=== PATIENT | female | born 1970 | race Caucasian/White ===

== ENCOUNTER 2017-05-22 21:59 | Emergency (ER) | payer BC ==
[~2017-05-22] VITALS: Ht 162.6 cm; Wt 70.5 kg
[2017-05-22 22:05] VITALS: Ht 162.6 cm; Wt 70.5 kg
[2017-05-22] MEDS ORDERED: ONDANSETRON (ODT) 4 MG TAB ODT STA (22:41)
[2017-05-22] MEDS ORDERED: HYDROCODONE/APAP (5/325) TAB PO ONE (23:00)
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
[2017-05-23] MEDS ORDERED: HYDR-906 PO (00:16)
[2017-05-23] MEDS ORDERED: IBUP-1542 PO (00:16)
[2017-05-23] MEDS ORDERED: CARI350T PO (00:16)
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
[2017-05-23] MEDS ORDERED: HYDROCODONE/APAP (5/325) TAB PO ONE (00:30)
== END 2017-05-23 00:31 | disposition home or self-care (01) ==
LOC: FTE 21:59
DX: S16.1XXA Strain of muscle, fascia and tendon at neck level, initial encounter (principal); S09.90XA Unspecified injury of head, initial encounter; M54.9 Dorsalgia, unspecified; R10.30 Lower abdominal pain, unspecified; V48.5XXA Car driver injured in noncollision transport accident in traffic accident, initial encounter
CPT/HCPCS: 70450; 72072; 72100; 72125

== ENCOUNTER 2017-08-17 23:28 | Emergency (ER) | payer BC, OTHER ==
[~2017-08-17] VITALS: Ht 160 cm; Wt 72.5 kg
[~2017-08-17 23:28] MED LIST: CARI350T PO; HYDR-906 PO; IBUP-1542 PO
[2017-08-17 23:31] VITALS: Ht 160 cm; Wt 72.5 kg
[2017-08-18] MEDS ORDERED: HYDROCODONE/APAP (5/325) TAB PO ONE (01:30)
--- NOTE | 2017-08-18 02:29 | RADRPT ---
PROCEDURE: XR Chest. CLINICAL INDICATION: Chest pain. TECHNIQUE: Single frontal chest x-ray. COMPARISON: 11/16/2008 FINDINGS: The cardiomediastinal silhouette is unremarkable. There is no congestive heart failure.. No focal i nfiltrate is seen. There is no pleural effusion. There is no pneumothorax. The osseous structures are unremarkable. IMPRESSION: 1. No active disease. RPTAT: HMVK .Eron Sánchez MD, MD Date Time Electronically viewed and signed by .Eron Sánchez MD, on 08/18/2017 02:29 .K/
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
--- NOTE | 2017-08-18 02:36 | RADRPT ---
PROCEDURE: CT Thoracic Spine without contrast. CLINICAL INDICATION: Back pain TECHNIQUE: Noncontrast CT of the thoracic spine was performed with axial images. Coronal and sagitta l images were also performed. The administered radiation dose was CTDI vol = 15.7 mGy, DLP = 636 m Gy-cm. COMPARISON: There are no similar studies submitted for comparison. FINDINGS: Vertebral body stature and alignment are maintained. No acute fracture or subluxation is identified. The paravertebral and paraspinous soft tissues are unremarkable. IMPRESSION: No acute fracture or subluxation. RPTAT: HIKT .Uzair Ca MD, MD Date Time Electronically viewed and signed by .Uzair Ca MD, MD on 08/18/2017 02:35 .T/
[2017-08-18 02:49] LABS: BASOPHILS % 0.2 % (0.0-2.0); HEMATOCRIT 37.9 % (37.0-47.0); HEMOGLOBIN 12.4 g/dl (12.0-16.0); LYMPHOCYTES # 1.2 10^3/ul (0.8-2.9); LYMPHOCYTES % 10.8 % (15.0-51.0); MEAN CORPUSCULAR HEMOGLOBIN 29.8 pg (29.0-33.0); MEAN CORPUSCULAR HGB CONC 32.7 g/dl (32.0-37.0); MEAN CORPUSCULAR VOLUME 91.1 fl (82.0-101.0); MONOCYTE # 0.5 10^3/ul (0.3-0.9); MONOCYTES % 4.2 % (0.0-11.0); NEUTROPHIL # 9.3 10^3/ul (1.6-7.5); NEUTROPHILS % 84.3 % (39.0-77.0); PLATELET COUNT 324 10^3/UL (140-415); RED BLOOD COUNT 4.16 10^6/ul (4.20-5.40)
[2017-08-18 03:22] LABS: ALANINE AMINOTRANSFERASE 30 IU/L (13-69); ALBUMIN 4.6 g/dl (3.3-4.9); ALBUMIN/GLOBULIN RATIO 1.35; ALKALINE PHOSPHATASE 82 IU/L (42-121); ANION GAP 15 (8-16); ASPARTATE AMINO TRANSFERASE 22 IU/L (15-46); BILIRUBIN,INDIRECT 0.1 mg/dl (0-1.1); BILIRUBIN,TOTAL 0.1 mg/dl (0.2-1.3); BLOOD UREA NITROGEN 8 mg/dl (7-20); CALCIUM 9.4 mg/dl (8.4-10.2); CARBON DIOXIDE 27 mmol/L (21-31); CHLORIDE 104 mmol/L (97-110); CREATININE 0.54 mg/dl (0.44-1.00); GLUCOSE 130 mg/dl (70-220); SODIUM 142 mmol/L (135-144)
[2017-08-18 03:35] LABS: TROPONIN-I < 0.012 ng/ml (0.00-0.12)
[2017-08-18] MEDS ORDERED: HYDR-906 PO (04:00)
[2017-08-18 04:08] VITALS: BP 115/65; PULSE 73; RESP 18
== END 2017-08-18 04:08 | disposition home or self-care (01) ==
LOC: FTE 23:28
DX: M54.6 Pain in thoracic spine (principal)
CPT/HCPCS: 36415; 71010; 72128; 80053; 84484; 85025; 93005